=== PATIENT | male | born 2000 | race Hispanic/Latino ===

== ENCOUNTER 2023-02-14 14:31 | Emergency (ER) | payer MEDICAID, OTHER ==
[~2023-02-14] VITALS: Ht 185.4 cm; Wt 63.5 kg
[2023-02-14 14:49] VITALS: BP 156/94; PULSE 78; RESP 18
[2023-02-14] MEDS ORDERED: CYCL10TA16 PO (15:19)
[2023-02-14] MEDS ORDERED: IBUP-2070 PO (15:19)
== END 2023-02-14 15:31 | disposition home or self-care (01) ==
LOC: EDH 14:31
DX: G89.29 Other chronic pain (principal); M45.6 Ankylosing spondylitis lumbar region; M41.9 Scoliosis, unspecified
CPT/HCPCS: 93005